=== PATIENT | male | born 1975 | race Caucasian/White ===

== ENCOUNTER 2016-08-15 18:43 | Emergency (ER) | payer OTHER ==
[~2016-08-15] VITALS: Ht 181.6 cm; Wt 103.4 kg
[~2016-08-15 18:43] MED LIST: CITA40TA12 PO; HYDR-5688 PO; IBUP-103 PO; PRLSR20 PO; VLT/75 PO
[2016-08-15 18:46] VITALS: TEMP 37.1; Ht 181.6 cm; Wt 103.4 kg
[2016-08-15] MEDS ORDERED: OXYCODONE HCL IR 5 MG TAB (IMMEDIATE RELEASE) PO STA (19:10)
[2016-08-15] MEDS ORDERED: OXYCODONE IR HOME PACK PO STA (19:10)
[2016-08-15] MEDS ORDERED: OXYC1TAB3 PO (19:11)
--- NOTE | 2016-08-15 19:13 | EMERGENCY ROOM VISIT NOTE ---
History First contact with patient: 18:54 Chief Complaint: NECK PAIN Stated Complaint: NECK SHOULDER PAIN History of Present Illness The patient is a 41 year old male who presents to the Emergency Room via private vehicle with complaints of "neck and shoulder pain". The patient states that he has chronic neck and shoulder pain and has had surgeries in the past. He states that he follows with pain management at [facility] as well as his primary care doctor for the issue. He states that he recently went to see his primary care doctor who placed him on an anti-inflammatory. He then went back and they placed him on prednisone. He states that this did not provide any relief and he then returned again and was told that if the prednisone did not help then pain medicine would not help either. He then called his pain management office who indicated that their pharmacist is not able to prescribe pain meds at this time as they have not began employment. 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 He states that this is no different than his typical pain other than that is slightly worse but notes that there is no reinjury or other concern. He denies any chest pain or shortness of breath. Review of Systems A complete 6-point Review of Systems was discussed with the patient, with pertinent positives and negatives listed in the History of Present Illness. All remaining Review of Systems questions can be considered negative unless otherwise specified. Past Medical/Surgical History Appendectomy at age 14, and neck surgery in 2013. Family History Unremarkable Social History Smoking Status: Former Smoker Social History: Patient is currently employed, he lives at home with , daughter, son and denies alcohol and tobacco products. Current/Historical Medications Scheduled Citalopram Hydrobromide (Celexa), 40 MG PO DAILY Ibuprofen Tab (Advil), 400 MG PO PRN UD Omeprazole (Prilosec), 20 MG PO DAILY Prednisone (Prednisone), 20 MG PO UD Scheduled PRN Oxycodone Ir (Roxicodone Ir), 1-2 TAB PO Q4H PRN for Pain Allergies Coded Allergies: Codeine (Verified Allergy, Unknown, HIVES, 05/05/16) Physical Exam Vital Signs Date Time Temp Pulse Resp B/P Pulse Ox O2 Delivery O2 Flow Rate FiO2 08/15/16 19:28 58 16 145/99 95 08/15/16 18:46 37.1 68 18 170/94 97 Room Air Physical Exam VITAL SIGNS - Vital signs and nursing notes were reviewed. Patient is afebrile , he is hypertensive at 170/94, he is not tachycardic and is saturating well on room air 97%. GENERAL -41-year-old male appearing his stated age who is in no acute distress. Communicates well with provider and answers questions appropriately. SKIN - Without rashes. HEAD - NC/AT. EYES - Sclera anicteric. Palpebral conjunctiva pink and moist with no injection noted. EARS - No deformities of external structures noted on gross examination bilaterally. MOUTH/OROPHARYNX - Without perioral cyanosis. NECK - Neck with FROM. Supple to palpation. No lymphadenopathy noted. No nuchal rigidity. No meningeal signs. There is tenderness in the superior left trapezius region. LUNGS - Chest wall symmetric without accessory muscle use, intercostals retractions, or central cyanosis. Normal vesicular breath sounds CTA B/L. No wheezes, rales, or rhonchi appreciated. CARDIAC - RRR with S1/S2. No murmur, rubs, or gallops appreciated. Medical Decision & Procedures Medications Administered Medications (Trade) Dose Ordered Sig/Drew Route Start Time Stop Time Status Last Admin Dose Admin Oxycodone HCl (Roxicodone Immediate Rel Tab) 5 mg NOW STAT PO 08/15/16 19:10 08/15/16 19:11 DC 08/15/16 19:24 5 MG Oxycodone HCl (Roxicodone Immediate Rel 5MG Home Pack) 1 homepack UD STAT PO 08/15/16 19:10 08/15/16 19:11 DC 08/15/16 19:24 1 HOMEPACK Medical Decision Patient was seen and evaluated as above. After obtaining a thorough history and physical examination, a thorough discussion was had with the patient and it was decided that he is having an exacerbation of his chronic pain and does not have any new injury. He is scheduled for an MRI the near future and I do not feel that any imaging is warranted this evening in the emergency department. He indicates that he just needs a short-term supply of pain medication to help bridge him until his appointment. I do believe this is reasonable and after checking him in the [facility] prescription drug monitoring system to believe this is an appropriate step. He is to follow-up with his regular pain management and family doctor for further evaluation and management and was told that long-term pain and prescriptions are not able to be written in the emergency department and should be done by pain management or his family doctor. He was educated upon management of today's findings. He had questions answered prior to discharge, was educated on worrisome symptoms in which to return and was discharged home in good condition. During his stay he was given 1-5 mg tablet of oxycodone as well as a home pack of this medication and a prescription was sent to his pharmacy. [facility] Drug Monitoring Program Search Results: patient reviewed within database, no issues identified Impression Primary Impression: Cervical spine pain Additional Impression: Cervical radiculopathy Departure Information Dispostion Home / Self-Care Condition GOOD Prescriptions Oxycodone Ir (Roxicodone Ir) 5 Mg Tab 1-2 TAB PO Q4H Y for Pain, #20 TAB For Initial Treatment Prov: Ajith Horne PA-C 08/15/16 Referrals Willi Chris D.O. (PCP) Patient Instructions My [facility] Additional Instructions You have been treated in the Emergency Department for Shoulder Pain/Neck Pain. You have received pain medicine in the emergency department which impairs your ability to operate a vehicle. It is illegal for you to drive after receiving these medicines. You have been prescribed Oxy IR to be used for pain control. This is a narcotic medication. You cannot drive or consume alcohol while on this medicine. This medicine should only be used for pain that cannot be controlled with over-the- counter pain medicines. For pain control, you can use the following [id number]-[id number] medicines (if >12 yo): - Regular strength (325mg/tab) Tylenol (acetaminophen) 2 tabs every 4-6 hours as needed. Do not exceed 12 tablets in a 24 hour period. Avoid taking more than 4 grams (4000 mg) of Tylenol per day. This includes any other sources of acetaminophen you may take on a regular basis. - Regular strength (200 mg/tab) Advil (ibuprofen) 1-2 tabs every 4-6 hours as needed. Do not exceed a dose of 3200 mg per day. If this is a recent injury (<24 hrs), ice can be applied to the area of pain for the first 3 days to help decrease pain and inflammation. Please keep your appointment with pain management and please call your family doctor as well as pain management to request sooner follow-up. If your symptoms worsen please return. As we discussed we are unfortunately unable to write for long-term pain medication scripts, these will need to come from either family doctor or pain management. Return to the Emergency Department if your current symptoms worsen despite treatment course outlined above, or if you develop any of the following symptoms : intractable pain despite aforementioned treatment course or new onset of numbness or tingling of the arm Please return to the emergency department with any new/concerning symptoms. Problem Qualifiers
[2016-08-15 19:28] VITALS: BP 145/99; PULSE 58; O2SAT 95
[2016-08-15] MEDS ORDERED: PRED20TA PO (19:28)
[2016-11-28] MEDS ORDERED: PRT/40 PO (19:09)
== END 2016-08-15 19:30 | disposition home or self-care (01) ==
LOC: C.EDB 18:44 → C.EDD 19:30
DX: M54.12 Radiculopathy, cervical region (principal); G89.29 Other chronic pain; Z87.891 Personal history of nicotine dependence; Z79.899 Other long term (current) drug therapy

== ENCOUNTER 2016-11-28 18:29 | Emergency (ER) | payer OTHER ==
[~2016-11-28] VITALS: Ht 180.3 cm; Wt 100.5 kg
[~2016-11-28 18:29] MED LIST changes: -HYDR-5688 PO; +OXYC1TAB3 PO; +PRED20TA PO; -VLT/75 PO
[2016-11-28 18:37] VITALS: TEMP 36.7; Ht 180.3 cm; Wt 100.5 kg
[2016-11-28] MEDS ORDERED: DEXAMETHASONE SOD INJ 10 MG/ML VIAL IM ONE (19:00)
[2016-11-28] MEDS ORDERED: ONDANSETRON 4MG OD TAB PO STA (19:00)
[2016-11-28] MEDS ORDERED: HYDROmorphone INJ 1 MG/ML SYR IM STA (19:00)
[2016-11-28] MEDS ORDERED: CITA40TA4 PO (19:09)
[2016-11-28] MEDS ORDERED: ACET1TAB84 PO (19:09)
[2016-11-28] MEDS ORDERED: PANT40TA2 PO (19:09)
--- NOTE | 2016-11-28 19:19 | EMERGENCY ROOM VISIT NOTE ---
History Report prepared by Alex: Abdelrahman Mccann Under the Supervision of: Dr. Ernie Cuellar D.O. First contact with patient: 18:48 Chief Complaint: NECK PAIN Stated Complaint: NECK PAIN- HE IS TO SEE NEURO SURGEON IN TWO WEEKS History of Present Illness The patient is a 41 year old male who presents to the Emergency Room with complaints of worsening neck pain that the patient has been experiencing for the past three years. The patient was diagnosed with a "collapsing" C6 and C7 vertebrae in 2013 and had a bone graft from his hip to his neck. 1.5 years ago he started to develop pain again and discovered his C4 and C5 vertebrae were collapsing via an MRI in September two months ago. He was not able to get Cortisone shots in the neck due to a milky substance around the spinal cord. He states that his pain is starting in her neck and radiating down into between his shoulder bladers. He has been taking Ibuprofen and Tylenol for his pain. He is scheduled for an appointment with neurosurgery in two weeks. He denies any recent fevers or other symptoms. Source of History: patient, spouse/significant other Onset: 3 years Position: neck Timing: worsening Associated Symptoms: + fevers Review of Systems See HPI for pertinent positives & negatives. A total of 10 systems reviewed and were otherwise negative. Past Medical & Surgical Medical Problems: (1) Appendicitis Surgical Problems: (1) History of appendectomy Family History No pertinent family history Social History Smoking Status: Never Smoker Smokeless Tobacco Use: Yes Drug Use: none Marital Status: Housing Status: lives with family Current/Historical Medications Scheduled Acetaminophen (Tylenol Arthritis Ext Rel), 650 MG PO BID Citalopram (Citalopram Hydrobromide), 40 MG PO DAILY Pantoprazole (Pantoprazole Sodium), 40 MG PO DAILY Prednisone (Prednisone Tab), 40 MG PO DAILY Scheduled PRN Oxycodone Immediate Rel Tab (Roxicodone Ir), 1-2 TAB PO Q4H PRN for Severe Pain Allergies Coded Allergies: Codeine (Verified Allergy, Unknown, HIVES, 05/05/16) Physical Exam Vital Signs Date Time Temp Pulse Resp B/P Pulse Ox O2 Delivery O2 Flow Rate FiO2 11/28/16 21:50 61 18 148/91 96 Room Air 11/28/16 18:37 36.7 72 18 153/91 96 Room Air Physical Exam GENERAL: Patient is awake, alert, and in no acute distress. Patient is resting comfortably and showing no signs of anxiety EYES: The conjunctivae are clear. The pupils are round and reactive. EARS, NOSE, MOUTH AND THROAT: The nose is without any evidence of any deformity. Mucous membranes are moist tongue is midline NECK: There is diffuse midline tenderness, ROM intact. The neck is supple. RESPIRATORY: Normal respiratory effort is noted there is no evidence of wheezing rhonchi or rales CARDIOVASCULAR: Regular rate and rhythm noted there no murmurs rubs or gallops normal S1 normal S2 GASTROINTESTINAL: The abdomen is soft. Bowel sounds are present in all quadrants. Abdomen is nontender BACK: No midline tenderness or or step-off noted range of motion in flexion extension as well as rotation no signs of muscle spasm noted MUSCULOSKELETAL/EXTREMITIES: There is no evidence of gross deformity full range of motion is noted in the hips and shoulders SKIN: There is no obvious evidence of any rash. There are no petechiae, pallor or cyanosis noted. NEUROLOGIC: Patient is awake alert and oriented x3 strength is symmetric patellar reflexes are 2+ bilaterally Medical Decision & Procedures ER Provider Diagnostic Interpretation: Radiology results as stated below per my review and radiologist interpretation: CERVICAL SPINE MRI WITH AND WITHOUT CONTRAST HISTORY: Pain. Neuropathy. pain with LUE numbness TECHNIQUE: Multiplanar multisequence MRI of the cervical spine was performed both before and after the use of intravenous contrast. COMPARISON STUDY: 10/06/2013 FINDINGS: Signal characteristics of the vertebral bodies suggest an anterior fusion at C6-C7. Postcontrast sagittal images. A be negative for a significant degree of postcontrast enhancement. There are findings of slightly progressive degenerative disc changes throughout compared to the prior exam. C2-C3: No significant central canal or neural foraminal narrowing. C3-C4: Mild broad-based disc bulge. Minimal osteophytic narrowing right neuroforamina. C4-C5: Minimal broad-based disc bulge. Minimal narrowing of the neuroforamina bilaterally. C5-C6: Minimal broad-based disc bulge. C6-C7: Mild osteophytic narrowing right neuroforamina. C7-T1: No significant central canal or neural foraminal narrowing. IMPRESSION: 1. Interval anterior fusion at C6-C7 2. Slightly progressive degenerative disc change at the entire cervical region compared to the prior study. 3. Slight broad-based disc bulges from C3 through C6. 4. Minimal/mild osteophytic narrowing of the right neuroforamina at C3-C4, bilaterally C4-C5, and on the right and C6-C7. 5. No evidence for abnormal postcontrast enhancement. Electronically signed by: Derrek Valladares M.D. 11/28/2016 9:51 PM Dictated Date/Time: 11/28/2016 9:45 PM Medications Administered Medications (Trade) Dose Ordered Sig/Drew Route Start Time Stop Time Status Last Admin Dose Admin Hydromorphone HCl (Dilaudid Inj) 1 mg NOW STAT IM 11/28/16 19:00 11/28/16 19:02 DC 11/28/16 19:25 1 MG Ondansetron HCl (Zofran Odt) 4 mg NOW STAT PO 11/28/16 19:00 11/28/16 19:02 DC 11/28/16 19:24 4 MG Dexamethasone Sodium Phosphate (Decadron Inj) 10 mg NOW ONCE IM 11/28/16 19:00 11/28/16 19:02 DC 11/28/16 19:24 10 MG Oxycodone HCl (Roxicodone Immediate Rel 5MG Home Pack) 1 homepack UD ONCE PO 11/28/16 22:30 11/28/16 22:31 DC 11/28/16 22:37 1 HOMEPACK ED Course 1851: The patient was evaluated in room A2. A complete history and physical examination were performed. 1899: Ordered Decadron 10 mg IM, Zofran 4 mg PO, Dilaudid 1 mg IM. 2229: Ordered Oxycodone HCl 1 homepack PO. 2238: Upon reevaluation, the patient is resting in bed. I discussed the results and treatment plan with him. He verbalized agreement of the treatment plan. The patient was discharged home. Medical Decision The patient's history was concerning for back pain. Differential diagnosis: Etiologies such as musculoskeletal, disc herniation, fracture, aortic disease, metastatic disease, cord compression, discitis, infection, renal colic, gastrointestinal, acute exacerbation of chronic neck pain, sciatica, cauda equina, as well as others were entertained. The patient is a 41-year-old male who presented to the emergency department for an evaluation of neck pain and radiating symptoms to the arm. The patient has a history of neck problems in the past as well as surgery. The patient has a follow-up plan with his orthopedic physician. The patient was treated with pain medication and steroids in the emergency department. On subsequent reevaluation he was feeling much better. I discussed the patient's radial graphic studies with him. At this time it does appear that he has some cervical disc disease but it does not appear to to be in acute surgical issue at this time. The patient was encouraged to rest and avoid any strenuous activity. He was also encouraged to avoid any heavy lifting and follow-up with his primary orthopedic physician as soon as possible. He was also encouraged to continue all medications as prescribed and return to the emergency department immediately if symptoms change worsen or the need arises. Impression Primary Impression: Cervical radiculopathy Additional Impression: Neck pain Scribe Attestation The scribe's documentation has been prepared under my direction and personally reviewed by me in its entirety. I confirm that the note above accurately reflects all work, treatment, procedures, and medical decision making performed by me. Departure Information Dispostion Home / Self-Care Prescriptions Oxycodone Immediate Rel Tab (ROXICODONE IR) 5 Mg Tab 1-2 TAB PO Q4H Y for Severe Pain, #24 TAB Prov: Ernie Cuellar, DO 11/28/16 Prednisone (Prednisone Tab) 20 Mg Tab 40 MG PO DAILY, #10 TAB Prov: Ernie Cuellar, DO 11/28/16 Referrals Willi Chris D.O. (PCP) Forms HOME CARE DOCUMENTATION FORM, IMPORTANT VISIT INFORMATION, WORK / SCHOOL INSTRUCTIONS Patient Instructions My [facility] Additional Instructions Call your spine surgeon in the morning to schedule a follow-up appointment. Rest and avoid any strenuous activity. Continue all medications as prescribed. Continue taking Motrin and Tylenol as directed for mild pain. Return to the emergency department immediately if symptoms change worsen or the need arises. Problem Qualifiers
[2016-11-28] MEDS ORDERED: GADAVIST IV PRN (21:45)
[2016-11-28 21:50] VITALS: BP 148/91; PULSE 61; O2SAT 96
--- NOTE | 2016-11-28 21:52 | DIAGNOSTIC IMAGING REPORT ---
CERVICAL SPINE MRI WITH AND WITHOUT CONTRAST HISTORY: Pain. Neuropathy. pain with LUE numbness TECHNIQUE: Multiplanar multisequence MRI of the cervical spine was performed both before and after the use of intravenous contrast. COMPARISON STUDY: 10/06/2013 FINDINGS: Signal characteristics of the vertebral bodies suggest an anterior fusion at C6-C7. Postcontrast sagittal images. A be negative for a significant degree of postcontrast enhancement. There are findings of slightly progressive degenerative disc changes throughout compared to the prior exam. C2-C3: No significant central canal or neural foraminal narrowing. C3-C4: Mild broad-based disc bulge. Minimal osteophytic narrowing right neuroforamina. C4-C5: Minimal broad-based disc bulge. Minimal narrowing of the neuroforamina bilaterally. C5-C6: Minimal broad-based disc bulge. C6-C7: Mild osteophytic narrowing right neuroforamina. C7-T1: No significant central canal or neural foraminal narrowing. IMPRESSION: 1. Interval anterior fusion at C6-C7 2. Slightly progressive degenerative disc change at the entire cervical region compared to the prior study. 3. Slight broad-based disc bulges from C3 through C6. 4. Minimal/mild osteophytic narrowing of the right neuroforamina at C3-C4, bilaterally C4-C5, and on the right and C6-C7. 5. No evidence for abnormal postcontrast enhancement. Electronically signed by: Derrek Valladares M.D. 11/28/2016 9:51 PM Dictated Date/Time: 11/28/2016 9:45 PM
[2016-11-28] MEDS ORDERED: OXYC1TAB3 PO (22:24)
[2016-11-28] MEDS ORDERED: PRED20TA2 PO (22:24)
[2016-11-28] MEDS ORDERED: OXYCODONE IR HOME PACK PO ONE (22:30)
== END 2016-11-28 22:37 | disposition home or self-care (01) ==
LOC: C.EDB 18:30 → C.EDA 22:37
DX: M54.12 Radiculopathy, cervical region (principal); Z79.899 Other long term (current) drug therapy; Z98.890 Other specified postprocedural states; Z88.5 Allergy status to narcotic agent

== ENCOUNTER 2017-01-21 18:09 | Emergency (ER) | payer OTHER ==
[~2017-01-21] VITALS: Ht 180.3 cm; Wt 100.6 kg
[~2017-01-21 18:09] MED LIST changes: +ACET1TAB84 PO; -CITA40TA12 PO; +CITA40TA4 PO; -IBUP-103 PO; -PRED20TA PO; +PRED20TA2 PO; -PRLSR20 PO; +PRT/40 PO
[2017-01-21 18:15] VITALS: TEMP 37.1; Ht 180.3 cm; Wt 100.6 kg
[2017-01-21] MEDS ORDERED: OXYCODONE HCL IR 5 MG TAB (IMMEDIATE RELEASE) PO STA (18:41)
[2017-01-21] MEDS ORDERED: PENI500T2 PO (18:44)
[2017-01-21] MEDS ORDERED: OXYC1TAB3 PO (18:44)
[2017-01-21] MEDS ORDERED: PENICILLIN V POTASSIUM 250 MG TAB PO ONE (18:45)
[2017-01-21] MEDS ORDERED: ASPI-391 PO (18:54)
[2017-01-21 19:05] VITALS: BP 133/83; PULSE 75; O2SAT 95
--- NOTE | 2017-01-22 15:17 | EMERGENCY ROOM VISIT NOTE ---
History Report prepared by Alex: Chinedu Brown Under the Supervision of: Dr. Jia Rojo M.D. First contact with patient: 18:34 Chief Complaint: DENTAL PAIN Stated Complaint: TOOTH PAIN Nursing Triage Summary: lower left dental pain. History of Present Illness The patient is a 42 year old male who presents to the Emergency Room with complaints of persistent lower left molar dental pain that started 2 days ago. Per the patient's , the patient had a partial root canal a month ago. It was not completed because long term through it was determined that the patient's insurance would not cover the procedure. The patient had a temporary filling put in. He says that he was not having pain until 2 days ago. Ever since then, he has been alternating Tylenol and Excedrin. The patient's wrapped the patient's head with a cloth and ice bandage last night, with no relief of pain. The patient has not eaten or drank much of anything today. The patient denies any fevers or vomiting. He is in the process of getting health insurance, and has a dental appointment scheduled for 2 days from now. If he does not get insurance by the appointment date, he will have to reschedule for 4 days from now. Source of History: patient, spouse/significant other Onset: 2 days ago Position: teeth (left lower molar) Timing: other (persistent) Associated Symptoms: No fevers, No vomiting Note: Associated symptoms: Has not eaten or drank much today. Review of Systems See HPI for pertinent positives & negatives. A total of 4 systems reviewed and were otherwise negative. Past Medical & Surgical Medical Problems: (1) Appendicitis (2) No chronic diseases present (3) No chronic diseases present Surgical Problems: (1) History of appendectomy Cervical radiculopathy Family History No pertinent family history Social History Smoking Status: Never Smoker Drug Use: none Marital Status: Housing Status: lives with family Current/Historical Medications Scheduled Acetaminophen (Tylenol Arthritis Ext Rel), 650 MG PO BID Citalopram (Citalopram Hydrobromide), 40 MG PO DAILY Pantoprazole (Pantoprazole Sodium), 40 MG PO DAILY Penicillin V Potassium (Veetids), 500 MG PO TID Scheduled PRN Vaidnlx-Vpsmplrkemgew-Irlthruj (Excedrin Extra Strength), 2 TABS PO Q6H PRN for Pain Oxycodone Ir (Roxicodone Ir), 5 MG PO Q4H PRN for Pain Allergies Coded Allergies: Codeine (Verified Allergy, Unknown, HIVES, 05/05/16) Physical Exam Vital Signs Date Time Temp Pulse Resp B/P (MAP) Pulse Ox O2 Delivery O2 Flow Rate FiO2 01/21/17 19:05 75 18 133/83 95 01/21/17 18:15 37.1 88 18 137/90 97 Room Air Physical Exam Constitutional: Vital signs reviewed. Eyes: Pupils are equal round reactive to light. Conjunctiva are noninjected. ENT: Pharynx is clear without erythema or exudate. Mucous membranes are moist. Neck supple without meningeal signs. Left mandibular premolar with slight percussion to tenderness. No gingival swelling or edema. No facial swelling or cervical lymphadenopathy. Neurological: The patient is awake and alert. No focal deficits. Psychiatric: Normal affect. Medical Decision & Procedures Medications Administered Medications (Trade) Dose Ordered Sig/Drew Route Start Time Stop Time Status Last Admin Dose Admin Oxycodone HCl (Roxicodone Immediate Rel Tab) 5 mg NOW STAT PO 01/21/17 18:41 01/21/17 18:43 DC 01/21/17 19:04 5 MG Penicillin V Potassium (Veetids Tab) 500 mg NOW ONCE PO 01/21/17 18:45 01/21/17 18:46 DC 01/21/17 19:03 500 MG ED Course 1835: The patient was evaluated in room D4B. A complete history and physical exam was performed. 184: Ordered Roxicodone Immediate Rel Tab 5 mg PO. 184: Ordered Veetids Tab 500 mg PO. 1850: I reevaluated the patient and he is resting. The patient verbally expressed understanding and agreement with the treatment plan. The patient will be discharged. Medical Decision This is a 42-year-old male who presents with dental pain. I did perform a limited focused review of portions of the patient's old chart on the electronic medical record. The patient was here for cervical radiculopathy in November and was treated with oxycodone. Blood Pressure Screening: Patient was found to have an elevated blood pressure and was referred to their primary doctor for recheck and further treatment. Medication Reconciliation: I attest that I have personally reviewed the patient' s current medication list. I did evaluate the patient as noted above. The patient is presenting with dental pain. He has a tooth that underwent preparation for repeat no was never completed due to insurance issues. He has had 2 days of pain. He does not have any gingival swelling or erythema. His face is not swollen. He is not vomiting or toxic appearing. I did recommend antibiotics and follow with his dentist. He was given penicillin and oxycodone here and discharged with a prescription for both medications. He was given precautions regarding OxyIR use. [place] Drug Monitoring Program Search Results: patient reviewed within database, no issues identified Impression Primary Impression: Odontalgia Scribe Attestation The scribe's documentation has been prepared under my direct and personally reviewed by me in its entirety. I confirm that the note above accurately reflects all work, treatment, procedures, and medical decision making performed by me. Departure Information Dispostion Home / Self-Care Prescriptions Penicillin V Potassium (VEETIDS) 500 Mg Tab 500 MG PO TID for 10 Days, #30 TAB Prov: Jai Rojo M.D. 01/21/17 Oxycodone Ir (Roxicodone Ir) 5 Mg Tab 5 MG PO Q4H Y for Pain, #14 TAB Prov: Jai Rojo M.D. 01/21/17 Referrals No Doctor, Assigned (PCP) Patient Instructions My [facility], Toothache - [facility] Additional Instructions You have been examined and treated today on an emergency basis only. This is not a substitute for, or an effort to provide, complete comprehensive medical care. It is impossible to recognize and treat all injuries or illnesses in a single emergency department visit. It is therefore important that you follow up closely with your dentist per your appointment in two days. Return for worsening symptoms or if you develop fever, vomiting, facial swelling or any other concerning symptoms.
== END 2017-01-21 19:07 | disposition home or self-care (01) ==
LOC: C.EDB 18:10 → C.EDD 19:07
DX: K08.89 Other specified disorders of teeth and supporting structures (principal)

== ENCOUNTER 2019-03-26 06:42 | Observation (INO) ==
--- NOTE | 2019-03-13 10:55 | PAT Medication Instructions ---
Medication Instructions Date of Service March 13, 2019 Home Medications acetaminophen [Tylenol Extra Strength] 1,000 mg PO BID PRN cyclobenzaprine 10 mg PO TID PRN gabapentin 300 mg PO BID ibuprofen 600 mg PO BID PRN pantoprazole 40 mg PO HS sertraline [Zoloft] 200 mg PO HS tramadol [Ultram] 50 mg PO Q6H PRN ASK your surgeon for instructions ibuprofen 600 mg PO BID PRN DO NOT take the morning of surgery cyclobenzaprine 10 mg PO TID PRN Take morning of surgery With a small sip of water, OTHERWISE NOTHING TO EAT OR DRINK AFTER MIDNIGHT: acetaminophen [Tylenol Extra Strength] 1,000 mg PO BID PRN (if needed, may be taken up to four hours before surgery) gabapentin 300 mg PO BID tramadol [Ultram] 50 mg PO Q6H PRN (if needed, may be taken up to four hours before surgery) Take evening before surgery acetaminophen [Tylenol Extra Strength] 1,000 mg PO BID PRN (if needed) cyclobenzaprine 10 mg PO TID PRN (if needed) gabapentin 300 mg PO BID pantoprazole 40 mg PO HS sertraline [Zoloft] 200 mg PO HS tramadol [Ultram] 50 mg PO Q6H PRN (if needed) Other Notes If you have any questions please call us at [phone] or [phone] or [phone] or [phone]
--- NOTE | 2019-03-13 15:30 | Anesthesiology Consultation ---
Date of Service March 13, 2019 Assessment & Plan (1) Encounter for pre-operative examination: Chart Review Chart Review: Acceptable Risk for Surgery (pending pre-op testing) and Patient seen in Pre Admission Testing Teaching & Discussion Instructed NPO after midnight before surgery, except medications with 15 cc of water. Medication instructions provided according to the PAT guidelines. History Surgery Operation Date: 03/26/19 10:35 Proposed Procedures p C6-C7 Laminotomy and Foraminotomy - Rick Fraire, Height/Weight Height: 5 ft 11 in Weight: 101.8 kg Allergies Allergy/AdvReac Type Severity Reaction Status Date / Time citalopram [From Celexa] Allergy Intermediate itching, Verified 03/12/19 13:00 increased depression and anxiety codeine Allergy Unknown HIVES - as Verified 03/12/19 12:58 a child Medications Home Medications Medication Instructions Recorded Confirmed Last Taken acetaminophen [Tylenol Extra 1,000 mg PO BID PRN 03/12/19 03/12/19 Unknown Strength] cyclobenzaprine 10 mg PO TID PRN 03/12/19 03/12/19 Unknown gabapentin 300 mg PO BID 03/12/19 03/12/19 Unknown ibuprofen 600 mg PO BID PRN 03/12/19 03/12/19 Unknown pantoprazole 40 mg PO HS 03/12/19 03/12/19 Unknown sertraline [Zoloft] 200 mg PO HS 03/12/19 03/12/19 Unknown tramadol [Ultram] 50 mg PO Q6H PRN 03/12/19 03/12/19 Unknown Past Medical History Medical History Anxiety Chronic neck and back pain Depression Osteoarthritis Exercise / Class Metabolic Activity II 4-5 Yardwork/Stairs/Walk up hill (Denies CP or SOB with 1 FOS) Past Family History Family History Uncle Family hx of colon cancer Family/Other Family hx of colon cancer Past Surgical History Surgical History Fusion of spine C6-C7 ANTERIOR, WITH BONE GRAFT HIP. LIMITED WITH LEFT MOTION R/T PINCHED NERVE CURRENTLY History of appendectomy History of open reduction and internal fixation (ORIF) procedure unsure a side -- clavicle S/P epidural steroid injection Cervical Past Anesthesia History No Hx of Anesthesia Complications and No Family Hx of Anesthesia Complications History of PONV No Hx of PONV and Hx of Motion Sickness STOP BANG Total 4 Social History Smoking Status: Never smoker tobacco type: smokeless tobacco Do You Dip or Chew Tobacco: Yes (1 can/3-4 days (advised)) Hx Alcohol Use: Yes alcohol intake frequency: holidays/special occasions only Hx Substance Use: Yes ("street") substance use type: marijuana Last Used Substance Other:: every couple days Review of Systems Pt denies any recent chest pain, shortness of breath, palpitations, cough, fever or URI. Physical Exam Vital Signs BP: 142/89 (pt is in some pain today) P: 93bpm SPO2: 95% RA T: 98.8 F R: 16 ENMT Mouth: + dentures (partial upper denture); no chipped teeth and no loose teeth Thyromental Distance: > or= 3.5 Finger Breadths (3.5) Mallampati Class: I Slightly edematous tonsils Neck normal visual inspection, + limited neck extension (some pain with full extension) and + facial hair (short goatee) Respiratory normal respiratory effort Auscultation: lungs clear to auscultation bilaterally Cardiovascular Rate/Rhythm: regular rate (borderline tachy) and regular rhythm Heart Sounds: no murmur Extremities: no edema
[2019-03-13 16:36] LABS: Basophils # (auto) 0.04 K/uL (0-0.2); Basophils % (auto) 0.7 %; Eosinophils # (auto) 0.14 K/uL (0-0.5); Eosinophils % (auto) 2.4 %; Hematocrit (blood only) 36.5 % (42-52); Hemoglobin 12.4 g/dL (14.0-18.0); Immature Granulocytes # (auto) 0.01 K/uL (0.00-0.02); Immature Granulocytes % (auto) 0.2 %; Lymphocytes # (auto) 1.82 K/uL (1.2-3.4); Lymphocytes % (auto) 31.3 %; Mean Corpuscular Volume 85.5 fL (80-100); Mean Platelet Volume 9.9 fL (7.4-10.4); Monocytes # (auto) 0.47 K/uL (0.11-0.59); Monocytes % (auto) 8.1 %; Neutrophils # (auto) 3.33 K/uL (1.4-6.5); Neutrophils % (auto) 57.3 %; Platelet Count 265 K/uL (130-400); RDW Coefficient of Variation 13.6 % (11.5-14.5); Red Blood Count 4.27 M/uL (4.7-6.1); White Blood Count 5.81 K/uL (4.8-10.8)
[2019-03-13 16:48] LABS: BUN Creatinine Ratio 10.9 (10-20); Calcium 8.6 mg/dl (8.5-10.1); Creatinine Clr Calc Pharmacy 115.8 ml/min; Est GFR (African American) 105.8; Est GFR (Non-African American) 91.3; Potassium 3.5 mmol/L (3.5-5.1)
[2019-03-13 16:50] LABS: Partial Thromboplastin Ratio 0.9
--- NOTE | 2019-03-25 13:00 | History and Physical Report ---
DATE OF ADMISSION: 03/26/2019 CHIEF COMPLAINT: Neck upper extremity, difficulty, paresthesias, working diagnosis of cervical radiculopathy. HISTORY OF PRESENT ILLNESS: Giovany is delightful, I remember operating on him several years ago. We did an anterior fusion. He has done well. He has a residual cervical radiculopathy. My impression is coming from a disc osteophyte complex from a posterior direction at C6-C7. We are doing a surgery tomorrow, which will be a laminotomy, foraminotomy, C6-C7 cervical spine. PAST MEDICAL HISTORY: Positive for anxiety, depression, but no COPD, diabetes, carcinoma, heart disease. PAST SURGICAL HISTORY: Appendectomy, neck surgery. ALLERGIES: CODEINE. SOCIAL HISTORY: , 3 children. No alcohol, no tobacco. Active lifestyle. REVIEW OF SYSTEMS: He has no fevers, sweats, chills. Ear, nose and throat negative. Denies chest pain, palpitations, heart beat changes. No asthma, wheezing, shortness of breath. He admits to occasional heartburn, sleep issues. He has numbness and tingling, stiffness and joint pain and weakness. MEDICATIONS: Include Zoloft, gabapentin, Flexeril. OBJECTIVE: GENERAL: He is 44. He is 6 feet. He is 190 pounds. He is in no terrible distress but certainly voices complaints. VITAL SIGNS: Blood pressure 130/80, pulse 80, respiration 16. CARDIAC: Normal S1, S2, no S3. LUNGS: Clear to auscultation. No rales, rhonchi, wheezing. ABDOMEN: Soft, nontender. NEUROLOGIC: He has a Spurling maneuver. He has Lhermitte sign. He has weakness of triceps function, loss of sensation. PLAN: Includes a laminotomy, foraminotomy, C6-C7 cervical spine.
[~2019-03-26 06:42] MED LIST changes: -ACET1TAB84 PO; +ACETAMINOPHEN 1000 MG/100 ML IV IV SCH; +ACETAMINOPHEN 500 MG TAB PO SCH; +CEFAZOLIN 2000MG 2,000 MG/15 ML SYR IV SCH; -CITA40TA4 PO; +LR 15ML/HR IV SCH; -OXYC1TAB3 PO; -PRED20TA2 PO; -PRT/40 PO; +SODIUM CHLORIDE 0.9% 1,000 ML IV SCH
[2019-03-26] MEDS ORDERED: ACETAMINOPHEN 1000 MG/100 ML IV IV ONE (07:25)
[2019-03-26] MEDS ORDERED: DEXAMETHASONE SOD INJ 4 MG/ML VIAL ONE (07:44)
[2019-03-26] MEDS ORDERED: fentaNYL citrate 100 MCG/2 ML VIAL ONE ×3 (07:44→10:25)
[2019-03-26] MEDS ORDERED: MIDAZOLAM HCL 1 MG/ML 2ML VIAL ONE ×3 (07:44→11:00)
[2019-03-26] MEDS ORDERED: PROPOFOL IV EMULSION 10 MG/ML 20 ML VIAL IV ONE (07:44)
[2019-03-26] MEDS ORDERED: ROCURONIUM BROMIDE 10 MG/ML 5 ML VIAL ONE ×3 (07:44→10:00)
[2019-03-26] MEDS ORDERED: ONDANSETRON INJ 2 MG/ML 2 ML VIAL ONE ×2 (07:44→10:00)
[2019-03-26] MEDS ORDERED: LIDOCAINE HCL 2% 2 ML VIAL/AMP(20MG/ML) INFIL ONE (07:44)
[2019-03-26] MEDS ORDERED: BUPIVACAINE/EPINEPHRINE 0.5% MPF 1:200,000 30 ML VIAL ONE (08:00)
[2019-03-26] MEDS ORDERED: THROMBIN FOR SOLN 20000 UNIT KIT ONE ×2 (08:00→08:13)
[2019-03-26] MEDS ORDERED: GELATIN SPONGE SZ 100 ONE (08:00)
[2019-03-26] MEDS ORDERED: BACITRACIN INJ 50,000 UNIT VIAL ONE (08:00)
[2019-03-26] MEDS ORDERED: VANCOMYCIN HCL 1000MG/20ML VIAL ONE (08:13)
[2019-03-26] MEDS ORDERED: BACITRACIN OINT 15 GM TUBE ONE (08:13)
--- NOTE | 2019-03-26 08:25 | History & Physical Bridge Note ---
Date of Service March 26, 2019 History & Physical Bridge Note I have examined the patient, reviewed the History & Physical and in the interval since the performance of the History & Physical I have noted the following changes of clinical significance: no changes noted
[2019-03-26] MEDS ORDERED: NALOXONE HCL 0.4 MG/1 ML VIAL/CARP IV PRN (09:27)
[2019-03-26] MEDS ORDERED: ONDANSETRON INJ 2 MG/ML 2 ML VIAL IV PRN ×2 (09:27→12:20)
[2019-03-26] MEDS ORDERED: LABETALOL HCL IV 5 MG/ML 20ML IV PRN (09:27)
[2019-03-26] MEDS ORDERED: FLUMAZENIL 0.1 MG/1 ML 10 ML VIAL IV PRN (09:27)
[2019-03-26] MEDS ORDERED: ePHEDrine sulfate 50 MG/ML AMP IV PRN (09:27)
[2019-03-26] MEDS ORDERED: PROMETHAZINE HCL 12.5 MG in SODIUM CHLORIDE 0.9% 50 ML IV PRN (09:27)
[2019-03-26] MEDS ORDERED: ATROPINE SULFATE 0.1 MG/ML 10ML SYR IV PRN (09:27)
[2019-03-26] MEDS ORDERED: KETAMINE HCL INJ 50 MG/ML 10 ML VIAL ONE (09:30)
[2019-03-26] MEDS ORDERED: PHENYLEPHRINE HCL 10 MG/ML VIAL ONE (10:00)
[2019-03-26] MEDS ORDERED: GLYCOPYRROLATE 0.2 MG/ML VIAL ONE (10:00)
[2019-03-26] MEDS ORDERED: NEOSTIGMINE METHYLSULFATE 5 MG/5 ML SYR ONE (10:00)
--- NOTE | 2019-03-26 10:51 | Post Operative Brief Note ---
PG Immediate Post Op with CF Date of Surgery March 26, 2019 Pre & Post Diagnosis Operation Date: 03/26/19 08:15 Pre-Op Diagnosis: Cervical Radiculopathy, Cervical Spinal Stenosis C6-7 Post-Op Diagnosis: Cervical Radiculopathy, Cervical Spinal Stenosis C6-7 Procedure Operation Date: 03/26/19 08:15 Actual Procedures p C6-C7 Laminotomy and Foraminotomy C7-T1 - Rick Fraire DO Surgeon Milind England, RUPAL Clean In Places Operator david Estimated Blood Loss 20 Findings Consistent with Post-Op Diagnosis Specimens Specimen Description: no specimen per surgeon Drains Hemovac Drain Anesthesia Type General Overlapping Procedure I was immediately available: during the entire case.
[2019-03-26] MEDS: HYDROmorphone INJ 1 MG/ML SYRINGE IV PRN ×2 (11:21→11:29)
--- NOTE | 2019-03-26 11:53 | Anesthesiology Progress Note ---
Date of Service March 26, 2019 Anesthesia Post Procedure Vital Signs Vital Signs: Temp Pulse Pulse Pulse Resp BP BP 03/26/19 11:45 36.6 C 03/26/19 11:36 73 13 03/26/19 11:35 68 14 146/92 H 03/26/19 11:31 70 14 03/26/19 11:30 74 15 157/95 H 03/26/19 11:26 73 17 03/26/19 11:25 71 21 144/93 H 03/26/19 11:21 78 18 03/26/19 11:20 75 17 146/87 H 03/26/19 11:15 72 16 148/85 H 03/26/19 11:11 86 18 03/26/19 11:10 81 21 152/97 H 03/26/19 11:09 82 15 03/26/19 11:08 36.3 C L 71 78 17 155/96 H 155/96 H 03/26/19 07:29 36.5 C 54 L 16 136/71 Pulse Ox 03/26/19 11:45 96 03/26/19 11:36 97 03/26/19 11:35 97 03/26/19 11:31 96 03/26/19 11:30 96 03/26/19 11:26 96 03/26/19 11:25 96 03/26/19 11:21 96 03/26/19 11:20 94 03/26/19 11:15 96 03/26/19 11:11 96 03/26/19 11:10 97 03/26/19 11:09 97 03/26/19 11:08 99 03/26/19 07:29 95 Pain Intensity Posterior Neck: Pain Intensity: 4 Transfer of Care Handoff Completed per policy Notes Mental Status: alert / awake / arousable Patient Amnestic to Procedure: Yes Nausea / Vomiting: adequately controlled Pain: adequately controlled Airway Patency, RR, SpO2: stable & adequate BP & HR: stable & adequate Hydration State: stable & adequate Anesthetic Complications: no major complications apparent
--- NOTE | 2019-03-26 12:13 | Operative Report ---
DATE OF OPERATION: 03/26/2019 PREOPERATIVE DIAGNOSES: Nerve root irritation C7 nerve root and cervical radiculopathy. POSTOPERATIVE DIAGNOSES: Nerve root irritation C7 nerve root and cervical radiculopathy. PROCEDURE: Included a posterior approach foraminotomy of C6-C7, C7-T1. SURGEON: Rick Fraire DO. VAT WASHER: Milind England PA-C. COMPLICATIONS: Zero. BLOOD LOSS: Less than 20 mL. ANESTHETIC: General. DESCRIPTION OF PROCEDURE: The patient was formally marked in the preop holding area, brought back to the operating room, general intubated anesthetic provided to the patient. Mason-Xobni head silverman placed in anatomic alignment. Secured. The patient was carefully taken from a supine position to a prone position, locked down with the Mason head silverman. Cross table lateral radiographs demonstrated excellent positioning of the cervical spine. There was no instability with the transition from supine to prone. He was scrubbed, prepped and draped sterile. Formal timeout taken. We made a skin incision, fascial incision, marked the C6-C7 interspace. I started at the C7-T1, did a small foraminotomy at C7-T1 on the affected right hand side. We then went up to the C6-C7 area, did also a foraminotomy at this area, which would include the C6, C7, and T1 nerve roots on the right hand side. I was pleased with the decompression. With palpation, the nerve area was free of obstruction. We then irrigated thoroughly, placed in a Hemovac drain, closed over vancomycin powder, closed with 1 Vicryl, 2-0 and 3-0 nylon on skin, sterile dressing applied. The patient returned supine and the Mason head silverman removed. Cervical collar placed. The patient then extubated to PACU, improved, stable condition. There were no apparent complications. Sponge and needle count correct. There were no implants used. I attest to the content of the Intraoperative Record and any orders documented therein. Any exception s are noted below.
[2019-03-26] MEDS ORDERED: HYDROmorphone INJ 1 MG/ML SYRINGE IV PRN ×2 (12:20)
[2019-03-26] MEDS ORDERED: MAGNESIUM HYDROXIDE SUSP 30 ML UDC PO PRN (12:20)
[2019-03-26] MEDS ORDERED: OXYCODONE HCL IR 5 MG TAB (IMMEDIATE RELEASE) PO PRN (12:20)
[2019-03-26] MEDS ORDERED: HYDROmorphone INJ 1 MG/ML SYRINGE ONE (12:49)
--- NOTE | 2019-03-26 13:19 | Fluoroscopy Report ---
INTRAOPERATIVE RADIOGRAPHS CLINICAL HISTORY: C6-C7 laminotomy and foraminotomy. Fluoroscopy time: 20 seconds. FINDINGS: 2 spot views of the lower cervical spine are presented. Fusion hardware is again seen at C6 -C7. Surgical instruments project over the C6-C7 vertebral bodies on the provided images. IMPRESSION: Intraoperative images of the cervical spine as above. See operative report for detailed f indings. Electronically signed by: Dimitri Mariee M.D. 03/26/2019 1:18 PM
[2019-03-26] MEDS: SODIUM CHLORIDE 0.9% 1000ML 1,000 ML IV SCH (13:33)
[2019-03-26] MEDS: CEFAZOLIN 2000MG 2,000 MG/15 ML SYR IV SCH (15:47)
[2019-03-26] MEDS: ACETAMINOPHEN 1,000 MG/100 ML VIAL IV PRN (19:07)
[2019-03-26] MEDS: GABAPENTIN 300 MG CAP PO SCH (20:21)
[2019-03-26] MEDS: DOCUSATE SODIUM 100 MG CAP PO SCH (20:21)
[2019-03-26] MEDS ORDERED: PANTOprazole 40 MG TAB PO SCH (21:00)
[2019-03-26] MEDS ORDERED: SERTRALINE HCL 100 MG TABLET PO SCH (21:00)
[2019-03-26] MEDS: OXYCODONE HCL IR 5 MG TAB (IMMEDIATE RELEASE) PO PRN (22:50)
[2019-03-27] MEDS: SODIUM CHLORIDE 0.9% 1000ML 1,000 ML IV SCH (00:24)
[2019-03-27] MEDS: CEFAZOLIN 2000MG 2,000 MG/15 ML SYR IV SCH ×2 (00:25→09:03)
[2019-03-27] MEDS: OXYCODONE HCL IR 5 MG TAB (IMMEDIATE RELEASE) PO PRN ×2 (05:45→10:44)
[2019-03-27] MEDS: ACETAMINOPHEN 1,000 MG/100 ML VIAL IV PRN (07:42)
--- NOTE | 2019-03-27 08:16 | Anesthesiology Progress Note ---
Date of Service March 27, 2019 Anesthesia Post Procedure Vital Signs Vital Signs: Temp Pulse Pulse Pulse Resp BP BP 03/27/19 03:44 36.8 C 85 17 133/82 03/26/19 23:38 36.7 C 72 17 135/84 03/26/19 20:05 36.6 C 61 16 129/84 03/26/19 15:11 36.4 C L 69 16 124/80 03/26/19 14:05 70 16 134/83 03/26/19 13:05 76 16 146/98 H 03/26/19 12:33 68 16 149/95 H 03/26/19 12:05 36.5 C 66 18 165/100 H 03/26/19 11:51 66 13 03/26/19 11:50 86 17 157/90 H 03/26/19 11:46 70 13 03/26/19 11:45 36.6 C 65 16 142/94 H 03/26/19 11:41 73 19 03/26/19 11:40 83 19 155/93 H 03/26/19 11:36 73 13 03/26/19 11:35 68 14 146/92 H 03/26/19 11:31 70 14 03/26/19 11:30 74 15 157/95 H 03/26/19 11:26 73 17 03/26/19 11:25 71 21 144/93 H 03/26/19 11:21 78 18 03/26/19 11:20 75 17 146/87 H 03/26/19 11:15 72 16 148/85 H 03/26/19 11:11 86 18 03/26/19 11:10 81 21 152/97 H 03/26/19 11:09 82 15 03/26/19 11:08 36.3 C L 71 78 17 155/96 H 155/96 H Pulse Ox 03/27/19 03:44 92 03/26/19 23:38 92 03/26/19 20:05 94 03/26/19 15:11 97 03/26/19 14:05 98 03/26/19 13:05 94 03/26/19 12:33 95 03/26/19 12:05 93 03/26/19 11:51 97 03/26/19 11:50 96 03/26/19 11:46 95 03/26/19 11:45 96 03/26/19 11:41 03/26/19 11:40 03/26/19 11:36 03/26/19 11:35 03/26/19 11:31 03/26/19 11:30 03/26/19 11:26 03/26/19 11:25 03/26/19 11:21 03/26/19 11:20 03/26/19 11:15 03/26/19 11:11 03/26/19 11:10 03/26/19 11:09 03/26/19 11:08 99 Pain Intensity Posterior Neck: Pain Intensity: 5 Notes Mental Status: alert / awake / arousable Patient Amnestic to Procedure: Yes Nausea / Vomiting: adequately controlled Pain: adequately controlled Airway Patency, RR, SpO2: stable & adequate BP & HR: stable & adequate Hydration State: stable & adequate Anesthetic Complications: no major complications apparent and Pt Satisfied with anesthetic care
[2019-03-27] MEDS: GABAPENTIN 300 MG CAP PO SCH (09:03)
[2019-03-27] MEDS: DOCUSATE SODIUM 100 MG CAP PO SCH (09:03)
--- NOTE | 2019-03-27 09:46 | Discharge Summary ---
I am seeing Giovany this morning on rounds. He is 20 hours post-surgery from a posterior cervical approach. He has had an uneventful stay and his pain is controlled. Vital signs stable. There were no issues. He will be discharged home this morning in improved stable condition. Dressing will be changed. Drain will be pulled. Follow up in 10 days and medications on his chart. He is to use common sense with care with bending, stooping, lifting and allow his incision site to heal.
[2019-03-28] MEDS ORDERED: BISACODYL 5 MG TABEC PO PRN (06:00)
== END 2019-03-27 12:17 | disposition home or self-care (01) ==
LOC: ASU 06:42 → 3E 06:42